=== PATIENT | male | born 1990 | race Two or more races ===

== ENCOUNTER 2020-11-25 23:18 | Emergency (ER) | payer MEDICAID, OTHER ==
[~2020-11-25] VITALS: Ht 165.1 cm; Wt 63.0 kg
[2020-11-25 23:46] LABS: BASOPHILS # (AUTO) 0.1 /CMM (0.0-0.2); BASOPHILS % (AUTO) 1.2 % (0.0-2.0); EOSINOPHILS % (AUTO) 1.5 % (0.0-6.0); HEMATOCRIT 45 % (39-51); HEMOGLOBIN 14.8 g/dL (13.5-17.5); LYMPHOCYTES # (AUTO) 1.7 /CMM (0.8-4.8); LYMPHOCYTES % (AUTO) 19.6 % (20.0-44.0); MEAN CORPUSCULAR HGB CONC 33 g/dl (31.0-36.0); MEAN CORPUSCULAR VOLUME 95 fL (80-96); MONOCYTES # (AUTO) 0.8 /CMM (0.1-1.30); MONOCYTES % (AUTO) 9.2 % (2.0-12.0); NEUTROPHILS # (AUTO) 5.9 /CMM (1.8-8.9); NEUTROPHILS % (AUTO) 68.5 % (43.0-81.0); PLATELET COUNT (AUTO) 284 /CMM (150-450); RED BLOOD CELL COUNT(AUTO) 4.74 MIL/uL (4.5-6.0); WHITE BLOOD COUNT (AUTO) 8.6 K/uL (4.3-11.0)
[2020-11-25 23:56] LABS: CALCIUM, SERUM 9.9 mg/dL (8.5-10.1); CARBON DIOXIDE 27 mmol/L (21-32); CHLORIDE 101 mmol/L (98-107); GLUCOSE 107 mg/dL (74-106); SODIUM SERUM 138 mmol/L (136-145); UREA NITROGEN, BLOOD 13 mg/dL (7-18)
[2020-11-26 00:02] LABS: ACETAMINOPHEN 0 ug/ml (10-30); ALANINE AMINOTRANSFERASE 34 U/L (12-78); ALBUMIN 4.5 g/dL (3.4-5.0); ALCOHOL, BLOOD < 3 mg/dL (0-0); ALKALINE PHOSPHATASE 53 U/L (46-116); ASPARTATE AMINOTRANSFERASE 33 U/L (15-37); BILIRUBIN,DIRECT 0.2 mg/dL (0.0-0.2); BILIRUBIN,TOTAL 0.5 mg/dL (0.2-1.0); TOTAL PROTEIN, SERUM 8.7 g/dL (6.4-8.2)
[2020-11-26 00:45] LABS: BILIRUBIN,URINE NEGATIVE (NEGATIVE); COLOR,URINE YELLOW (YELLOW); LEUKOCYTE ESTERASE ,URINE NEGATIVE (NEGATIVE); NITRITE, URINE NEGATIVE (NEGATIVE); PROTEIN,URINE NEGATIVE (NEGATIVE); UGLUCOSE NEGATIVE (NEGATIVE); UROBILINOGEN,URINE 0.2 EU/dL (0.2)
--- NOTE | 2020-11-26 02:58 | NUR ---
ELIZABETH BOARD MILL SUPERVISOR PAGED FOR PSYCH EVAL.
--- NOTE | 2020-11-26 04:06 | NUR ---
ELIZABETH ADMINISTRATOR PESTICIDE PAGED FOR PSYCH EVAL, LEFT A MESSAGE.
--- NOTE | 2020-11-26 07:07 | NUR ---
REC'D A CALL BACK FROM [place], PER HER SHE WILL BE HERE TO EVALUATE THE PT IN AN HOUR
--- NOTE | 2020-11-26 08:10 | NUR ---
assume pt care. sleeping, easily arousable. stable vitals.
--- NOTE | 2020-11-26 09:23 | NUR ---
Paged Shai Dang for psych evaluation
[2020-11-26 13:47] VITALS: BP 128/77
--- NOTE | 2020-11-26 13:47 | NUR ---
Patient discharged to home in stable condition. Written and verbal after care instructions given. Patient verbalizes understanding of instruction.
--- NOTE | 2020-11-26 15:06 | NUR ---
"Social Service Consult: supervisor customer services consult requested to assess for current suicidal ideations and for homelessness. Patient is a 30-year-old, male. SW met with the patient at his hospital bed in the emergency department. Patient is alert and oriented x4. Per patients chart, patient was brought in on a 5150 hold after he was seen running through traffic. Patient had already met with Internet Retailer, John Howard LCSW who discontinued the 5150 hold and referred the patient to [facility] ([address] [place] [address]; ). Patient agrees with this discharge plan. Patient stated he has been homeless for the last 4 months. SW asked the patient about his history of substance use and patient only stated, Stefani been using them my whole life but took a break. Patient did not want to discuss his history of substance use further. Per toxicology report, patient is positive for Cannabinoids. Patient denies any history of mental illness however per patients chart, patient has a history of ADHD and Schizophrenia. Patient denies any hallucinations or delusions. Patient denies any thoughts of suicide or homicide. SW discussed options for discharge with the patient and patient stated that he prefers to return to his previous living arrangement. Patient also stated that he plans to go to [facility]. SW offered homeless resources to the patient and asked if he is familiar with the resources. Patient stated that he is familiar with the resources and accepted the resources. Patient signed the homeless waiver and SW filed the waiver in the patients chart. PLAN: Patient has been provided with resources and agrees to this discharge plan. No further SS intervention at this time, however SW will remain available as needed. Year-round shelters: [facility] [address] [place] [address] ; [facility] [place] [facility] [address] [place] [address]; [facility] [facility] [id number] [facility] [address] SPA 4 | [facility] Provider: [facility] Address: [address], [facility] # of Beds: 48 Population Served: [facility] Provider: [facility] Serve Address: [address] [place] [address], [address] # of Beds: 73 Population Served: [facility] SPA 6 | [facility] Provider: [facility] Address: [address] [facility], [address] # of Beds: 63 Population Served: [place] SPA 3 | [facility] Provider: [facility] [place] Address: [address] [facility], [address] # of Beds: 75 Population Served: [place] SPA 8 | [facility] Provider: [facility] [place] Address: [address] [facility], [address] # of Beds: 80 Population Served: [facility] 1 | [facility] Provider: [facility] [place] Address: [address] [place] [address], [address] # of Beds: 85 Population Served: [facility] 2 | [facility] Provider: [facility] Address: Confidential (please call for location) # of Beds: 52 Population Served: [facility] 4 | [facility] Provider: [facility] Address: [address] [facility], [address] # of Beds: 49 Population Served: [facility] Provider: [facility] Address: [address] [place] [address], [address] # of Beds: 27 Population Served: [facility] Facility Provider: [facility] Address: [address] [facility], [address] # of Beds: 20 Population Served: [facility]: [facility]: [address] [address] ; [facility] [address] [address] ; [facility] [address] . Food Resources: [employer] [facility] at [facility]- [address]. [place]; [facility] Each Need with [facility] ([facility]) [address] [place]; [facility] [address] [facility]; [facility] [address] [facility]. Mental Health resources provided: [facility] [address] [place], [place] [id number] ; [facility] [address] [facility] [address], [place], [place] [id number] ; [facility] [address] [place], [place] [id number] ; [facility] [address] [place], [place] [address] Healthcare Clinics: [facility] [address] [facility], [address] [place]. [place] ; [facility] [address] [facility] [address] [place] [address]; [facility] [address] [facility] [place] [address] [phone]) [phone] Counseling--[facility]patient [facility] [address] [facility], [address] [place], [place] [address] (Specializes in in-depth psychotherapy for emotional distress: anxiety, depression, interpersonal conflicts, life transitions, childhood abuse) [facility] [address] [place] [address] (Assist with solving problem marital difficulties, separation & divorce, aging parents, & grief, chronic & terminal illness) PSYCHIATRIC OUTPATIENT SERVICES [facility] Partial Hospitalization and Intensive Outpatient Program (Managed Care and [place] Only) [address] [facility] [address] [facility] Partial Hospitalization and Outpatient Program [address] [facility]. [address] [place] [address] [facility] Partial Hospitalization and Outpatient Program [address] [place] [address] SILVANA MARYJANE [facility] [address] [address] [place] [address] [facility] Partial Hospitalization and Outpatient Program [address] [place], [place] [phone] "
== END 2020-11-26 13:47 | disposition home or self-care (01) ==
LOC: ER 23:21
DX: F22 Delusional disorders (principal); F20.9 Schizophrenia, unspecified; Z91.14 Patient's other noncompliance with medication regimen; Z20.822 Contact with and (suspected) exposure to COVID-19; F15.90 Other stimulant use, unspecified, uncomplicated
CPT/HCPCS: 36415; 80048; 80076; 80299; 80307; 80320; 81003; 85025; 87426; 99285; C9803; G0480